=== PATIENT | male | born 1940 | race Asian ===

== ENCOUNTER 2018-11-24 08:00 | Outpatient (CLI) | payer OTHER ==
[2018-11-24 08:32] LABS: PLATELET COUNT 217 K/uL (142-355)
== END 2018-11-24 20:25 | disposition home or self-care (01) ==
LOC: LABW 08:00
PROVIDERS: Internal Medicine
DX: I10 Essential (primary) hypertension (principal); E03.8 Other specified hypothyroidism; E78.00 Pure hypercholesterolemia, unspecified; N40.0 Benign prostatic hyperplasia without lower urinary tract symptoms; Z12.5 Encounter for screening for malignant neoplasm of prostate
CPT/HCPCS: 36415; 80053; 80061; 81000; 84153; 84439; 84443; 85027

== ENCOUNTER 2019-07-27 12:04 | Outpatient (CLI) | payer OTHER | END 2019-07-27 22:37 | disposition home or self-care (01) | LOC: RAD 12:04 | DX: M54.5 Low back pain (principal); K59.01 Slow transit constipation ==

== ENCOUNTER 2020-02-22 08:51 | Outpatient (CLI) | payer OTHER ==
[2020-02-22 10:32] LABS: PLATELET COUNT 215 K/uL (142-355)
== END 2020-02-22 19:01 | disposition home or self-care (01) ==
LOC: MRI 08:51
PROVIDERS: ATTEND Internal Medicine
DX: I63.511 Cerebral infarction due to unspecified occlusion or stenosis of right middle cerebral artery (principal); E03.8 Other specified hypothyroidism
CPT/HCPCS: 36415; 80053; 80061; 84439; 84443; 85027

== ENCOUNTER 2020-05-22 09:16 | Outpatient (CLI) | payer OTHER ==
[2020-05-22 09:54] LABS: PLATELET COUNT 200 K/uL (142-355)
[2020-05-22 11:00] LABS: POTASSIUM 4.1 mmol/L (3.6-5.2)
== END 2020-05-22 21:41 | disposition home or self-care (01) ==
LOC: LABW 09:16
PROVIDERS: ATTEND Internal Medicine
DX: Z00.00 Encounter for general adult medical examination without abnormal findings (principal); Z12.5 Encounter for screening for malignant neoplasm of prostate; Z79.899 Other long term (current) drug therapy
CPT/HCPCS: 36415; 80053; 80061; 81000; 84153; 84443; 85027

== ENCOUNTER 2020-06-06 08:05 | Outpatient (CLI) | payer OTHER | END 2020-06-06 21:25 | disposition home or self-care (01) | LOC: CT 08:05 | PROVIDERS: ATTEND Internal Medicine | DX: Z13.6 Encounter for screening for cardiovascular disorders (principal); Z12.2 Encounter for screening for malignant neoplasm of respiratory organs; F17.210 Nicotine dependence, cigarettes, uncomplicated | CPT/HCPCS: G0297-TC ==

== ENCOUNTER 2020-10-13 11:21 | Emergency (ER) | payer OTHER ==
[~2020-10-13] VITALS: Ht 167.6 cm; Wt 74.4 kg
[2020-10-13 11:21] VITALS: TEMP 98.7
[2020-10-13 12:10] LABS: PLATELET COUNT 331 K/uL (142-355)
[2020-10-13 12:14] LABS: POTASSIUM 3.9 mmol/L (3.6-5.2)
[2020-10-13 12:22] LABS: PARTIAL THROMBOPLASTIN TIME 29.6 SECONDS (24.5-33.6)
[2020-10-13 12:52] VITALS: BP 131/59
== END 2020-10-13 12:55 | disposition still patient (30) ==
LOC: ED 11:30
PROVIDERS: Hospitalist
DX: R47.81 Slurred speech (principal); R27.0 Ataxia, unspecified; H53.2 Diplopia; Z98.890 Other specified postprocedural states; Z86.73 Personal history of transient ischemic attack (TIA), and cerebral infarction without residual deficits; Z20.822 Contact with and (suspected) exposure to COVID-19; Z53.29 Procedure and treatment not carried out because of patient's decision for other reasons
CPT/HCPCS: 36415; 80053; 82550; 83880; 84484; 85027; 85610; 85730; 87635; 93005; 99283; U0003

== ENCOUNTER 2022-05-29 12:40 | Outpatient (CLI) | payer OTHER ==
[2022-05-29 13:14] LABS: POTASSIUM 3.8 mmol/L (3.6-5.2)
== END 2022-05-29 18:57 | disposition home or self-care (01) ==
LOC: LABW 12:40
PROVIDERS: ATTEND Surgery Vascular Surgery
DX: I73.9 Peripheral vascular disease, unspecified (principal)
CPT/HCPCS: 36415; 80048

== ENCOUNTER 2022-06-13 13:53 | Emergency (ER) | payer OTHER ==
[~2022-06-13] VITALS: Ht 167.6 cm; Wt 63.5 kg
[2022-06-13 14:32] LABS: PLATELET COUNT 222 K/uL (142-355)
[2022-06-13 14:42] LABS: PARTIAL THROMBOPLASTIN TIME 27.7 SECONDS (24.5-33.6)
[2022-06-13 14:50] LABS: POTASSIUM 4.1 mmol/L (3.6-5.2)
[2022-06-13 16:15] VITALS: BP 123/59; TEMP 97.9
== END 2022-06-13 16:20 | disposition home or self-care (01) ==
LOC: ED 13:53
PROVIDERS: Emergency Medicine
DX: R55 Syncope and collapse (principal); I25.2 Old myocardial infarction; Z86.73 Personal history of transient ischemic attack (TIA), and cerebral infarction without residual deficits; Z87.898 Personal history of other specified conditions; R06.02 Shortness of breath; F17.210 Nicotine dependence, cigarettes, uncomplicated
CPT/HCPCS: 36415; 80053; 83880; 84484; 85027; 85610; 85730; 93005; 96360; 99284